=== PATIENT | female | born 1965 | race Caucasian/White ===

== ENCOUNTER → 2019-02-01 | Outpatient (CLI) | payer OTHER ==
[~2019-02-01] MED LIST: FURO20TA3 PO; GABA300C10 PO; GABA600T PO; OXYC5TAB2 PO; POTA10TA5 PO; Simethicone PO; ZOLP10TA PO
== END | disposition home or self-care (01) ==
LOC: RAD 17:02
PROVIDERS: ATTEND Surgery
DX: K76.0 Fatty (change of) liver, not elsewhere classified (principal); Z90.49 Acquired absence of other specified parts of digestive tract
CPT/HCPCS: 76700

== ENCOUNTER 2019-02-23 11:43 | Inpatient (IN) | payer OTHER ==
[~2019-02-23] VITALS: Ht 170.2 cm; Wt 57.1 kg
--- NOTE | 2019-02-23 11:58 | NUR ---
Transfer from [facility] for ABD abscesses x 2. Cholecystectomy 1 mo ago. ABD pain & 40lb weight loss since. 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 Pain 6/10, placed on SPO2 & NIBP monitors. Advised to remain NPO. Call light within reach, SR up x 2. Await ER MD pierce. Report to primary RNBelem.
[2019-02-23] MEDS ORDERED: ONDANSETRON 2MG/ML, 2ML IVPush ONE (12:30)
[2019-02-23] MEDS ORDERED: HYDROmorphone 2 MG/ML, 1ML IVPush PRN (12:30)
[2019-02-23] MEDS ORDERED: SODIUM CHLORIDE FLUSH 10ML SYR IVF ONE (12:30)
[2019-02-23] MEDS ORDERED: ONDANSETRON 2MG/ML, 2ML ONE (12:31)
[2019-02-23] MEDS ORDERED: HYDROmorphone 2 MG/ML, 1ML ONE (12:32)
--- NOTE | 2019-02-23 12:43 | NUR ---
MEDICATED FOR PAIN AND NAUSEA
[2019-02-23 13:03] LABS: BASOPHILS # (AUTO) 0.05 x10^3/uL (0-0.1); BASOPHILS % (AUTO) 1 % (0-1); EOSINOPHILS # (AUTO) 0.12 x10^3/uL (0-0.4); EOSINOPHILS % (AUTO) 2 % (1-7); LYMPHOCYTES # (AUTO) 1.64 x10^3/uL (1-3.4); LYMPHOCYTES % (AUTO) 31 % (22-44); MD NO; MEAN CORPUSCULAR HEMOGLOBIN 32.7 pg (27.0-34.8); MEAN CORPUSCULAR HGB CONC 32.7 g/dL (32.4-35.8); MEAN CORPUSCULAR VOLUME 100.2 fL (80-100); MEAN PLATELET VOLUME 8.5 fL (7.4-10.4); MONOCYTES % (AUTO) 6 % (2-9); NEUTROPHILS # (AUTO) 3.11 x10^3/uL (1.8-6.8); NEUTROPHILS % (AUTO) 60 % (42-75); PLATELET COUNT 325 x10^3/uL (130-400); RED BLOOD COUNT 3.63 x10^6/uL (3.82-5.3); RED CELL DISTRIBUTION WIDTH 16.8 % (9.6-15.2)
[2019-02-23 13:14] LABS: INTERNATIONAL NORMALIZED RATIO 1.02 (0.93-1.1); PROTHROMBIN TIME 10.7 Seconds (9.6-11.5)
[2019-02-23 13:17] LABS: ALANINE AMINOTRANSFERASE 66 U/L (12-78); ALBUMIN 2.8 g/dL (3.4-5.0); ANION GAP 8 mmol/L (5-15); CALCIUM 8.1 mg/dL (8.5-10.1); CHLORIDE 107 mmol/L (98-107); CREATININE 0.81 mg/dL (0.55-1.02)
[2019-02-23 13:20] LABS: ALKALINE PHOSPHATASE 420 U/L (45-117); BILIRUBIN,TOTAL 1.4 mg/dL (0.2-1.0); TOTAL PROTEIN 6.4 g/dL (6.4-8.2)
--- NOTE | 2019-02-23 14:08 | NUR ---
PT AWARE OF PLAN OF CARE. STATES PAIN 12/13 SINCE MEDICATED
--- NOTE | 2019-02-23 14:26 | NUR ---
REPORT TO VIKI HORN. TO BE TRANSPORTED TO FLOOR
[2019-02-23 15:05] VITALS: BP 108/68
[2019-02-23] MEDS ORDERED: LABETALOL 5MG/ML, 20ML IVPush PRN (16:00)
[2019-02-23] MEDS ORDERED: hydrALAzine 20 MG/ML, 1ML IVPush PRN (16:00)
[2019-02-23] MEDS ORDERED: LACTATED RINGERS 1,000 ML IV SCH (16:00)
[2019-02-23] MEDS: GABAPENTIN 300 MG CAPSULE PO SCH ×2 (16:00→20:36)
[2019-02-23] MEDS ORDERED: ACETAMINOPHEN 325 MG TABLET PO PRN (16:00)
[2019-02-23] MEDS ORDERED: PROMETHAZINE 25 MG/ML, 1ML IM PRN (16:00)
[2019-02-23] MEDS ORDERED: GABAPENTIN 300 MG CAPSULE ONE (16:45)
[2019-02-23] MEDS: morphine SULFATE 10 MG/ML, 1ML IVPush PRN ×2 (16:53→22:09)
[2019-02-23] MEDS: MEROPENEM 1 GM in SODIUM CHLORIDE 0.9% 100 ML IV SCH (16:59)
[2019-02-23] MEDS: SODIUM CHLORIDE 0.9% 1,000 ML IV SCH (18:10)
[2019-02-23 18:56] LABS: CLOSTRIDIUM DIFFICILE ANTIGEN POSITIVE; CLOSTRIDIUM DIFFICILE TOXIN NEGATIVE (Negative)
[2019-02-23] MEDS: DIPHENHYDRAMINE 50 MG/ML, 1ML IVPush PRN (20:06)
[2019-02-23] MEDS: OXYcodone IR 5MG TABLET PO PRN (20:37)
[2019-02-23 20:40] VITALS: BP 105/74
[2019-02-23] MEDS ORDERED: GABAPENTIN 300 MG CAPSULE PO SCH (21:00)
[2019-02-23] MEDS: ZOLPIDEM 10MG TABLET PO PRN (22:09)
[2019-02-24] MEDS: MEROPENEM 1 GM in SODIUM CHLORIDE 0.9% 100 ML IV SCH ×3 (00:16→15:57)
[2019-02-24] MEDS: morphine SULFATE 10 MG/ML, 1ML IVPush PRN ×7 (01:29→21:58)
[2019-02-24 01:31] VITALS: BP 107/63
[2019-02-24] MEDS: SODIUM CHLORIDE 0.9% 1,000 ML IV SCH ×3 (02:07→17:58)
[2019-02-24 04:51] LABS: BASOPHILS # (AUTO) 0.04 x10^3/uL (0-0.1); BASOPHILS % (AUTO) 1 % (0-1); EOSINOPHILS # (AUTO) 0.41 x10^3/uL (0-0.4); EOSINOPHILS % (AUTO) 9 % (1-7); LYMPHOCYTES # (AUTO) 1.36 x10^3/uL (1-3.4); LYMPHOCYTES % (AUTO) 29 % (22-44); MD NO; MEAN CORPUSCULAR HEMOGLOBIN 33.1 pg (27.0-34.8); MEAN CORPUSCULAR HGB CONC 32.7 g/dL (32.4-35.8); MEAN CORPUSCULAR VOLUME 101.4 fL (80-100); MEAN PLATELET VOLUME 8.9 fL (7.4-10.4); MONOCYTES # (AUTO) 0.33 x10^3/uL (0.2-0.8); MONOCYTES % (AUTO) 7 % (2-9); NEUTROPHILS # (AUTO) 2.57 x10^3/uL (1.8-6.8); NEUTROPHILS % (AUTO) 55 % (42-75); PLATELET COUNT 290 x10^3/uL (130-400); RED BLOOD COUNT 3.27 x10^6/uL (3.82-5.3); RED CELL DISTRIBUTION WIDTH 16.5 % (9.6-15.2)
[2019-02-24] MEDS: DIPHENHYDRAMINE 50 MG/ML, 1ML IVPush PRN ×2 (04:52→17:58)
[2019-02-24 04:58] LABS: ALANINE AMINOTRANSFERASE 79 U/L (12-78); ALBUMIN 2.6 g/dL (3.4-5.0); ANION GAP 7 mmol/L (5-15); CALCIUM 8.2 mg/dL (8.5-10.1); CHLORIDE 111 mmol/L (98-107); CREATININE 0.79 mg/dL (0.55-1.02)
[2019-02-24 05:01] LABS: ALKALINE PHOSPHATASE 408 U/L (45-117); BILIRUBIN,TOTAL 1.8 mg/dL (0.2-1.0)
[2019-02-24 07:42] VITALS: BP_SYST 105; BP_SYST 107; BP_SYST 88; BP_DIAS 60; BP_DIAS 63; BP_DIAS 72
[2019-02-24] MEDS: GABAPENTIN 300 MG CAPSULE PO SCH ×3 (07:55→21:12)
[2019-02-24] MEDS: OXYcodone IR 5MG TABLET PO PRN ×2 (07:55→21:12)
[2019-02-24] MEDS: VANCOMYCIN 50 MG/ML ORAL SUSP PO SCH ×3 (09:03→19:53)
[2019-02-24 13:05] VITALS: BP 106/70
[2019-02-24] MEDS ORDERED: LORazepam 2 MG/ML, 1ML IVPush ONE (13:30)
[2019-02-24 21:17] VITALS: BP 105/85
[2019-02-24] MEDS: ZOLPIDEM 10MG TABLET PO PRN (22:28)
[2019-02-25] MEDS: MEROPENEM 1 GM in SODIUM CHLORIDE 0.9% 100 ML IV SCH ×4 (00:35→23:48)
[2019-02-25] MEDS: DIPHENHYDRAMINE 50 MG/ML, 1ML IVPush PRN ×4 (00:35→20:23)
[2019-02-25] MEDS: VANCOMYCIN 50 MG/ML ORAL SUSP PO SCH ×4 (02:03→20:30)
[2019-02-25] MEDS: morphine SULFATE 10 MG/ML, 1ML IVPush PRN ×8 (02:03→23:49)
[2019-02-25] MEDS: SODIUM CHLORIDE 0.9% 1,000 ML IV SCH ×3 (02:06→20:46)
[2019-02-25 02:36] VITALS: BP 117/66
[2019-02-25 02:49] VITALS: BP 112/87
[2019-02-25 05:38] LABS: ALANINE AMINOTRANSFERASE 110 U/L (12-78); ALBUMIN 2.4 g/dL (3.4-5.0); ANION GAP 8 mmol/L (5-15); CHLORIDE 112 mmol/L (98-107)
[2019-02-25 05:41] LABS: ALKALINE PHOSPHATASE 485 U/L (45-117); BILIRUBIN,TOTAL 2.6 mg/dL (0.2-1.0); CREATININE 0.64 mg/dL (0.55-1.02); TOTAL PROTEIN 5.6 g/dL (6.4-8.2)
[2019-02-25 06:30] LABS: BASOPHILS # (AUTO) 0.02 x10^3/uL (0-0.1); BASOPHILS % (AUTO) 0 % (0-1); EOSINOPHILS # (AUTO) 0.51 x10^3/uL (0-0.4); EOSINOPHILS % (AUTO) 10 % (1-7); LYMPHOCYTES # (AUTO) 1.52 x10^3/uL (1-3.4); LYMPHOCYTES % (AUTO) 29 % (22-44); MD NO; MEAN CORPUSCULAR HGB CONC 32.4 g/dL (32.4-35.8); MEAN CORPUSCULAR VOLUME 101.7 fL (80-100); MEAN PLATELET VOLUME 9.1 fL (7.4-10.4); MONOCYTES % (AUTO) 4 % (2-9); NEUTROPHILS # (AUTO) 2.99 x10^3/uL (1.8-6.8); NEUTROPHILS % (AUTO) 57 % (42-75); PLATELET COUNT 251 x10^3/uL (130-400); RED BLOOD COUNT 3.37 x10^6/uL (3.82-5.3); RED CELL DISTRIBUTION WIDTH 16.1 % (9.6-15.2)
[2019-02-25] MEDS: GABAPENTIN 300 MG CAPSULE PO SCH ×3 (08:10→22:39)
[2019-02-25 09:35] VITALS: BP 134/87
[2019-02-25] MEDS: ONDANSETRON 2MG/ML, 2ML IVPush PRN (11:16)
[2019-02-25 14:26] VITALS: BP 157/99
[2019-02-25 20:06] VITALS: BP 128/95
[2019-02-25] MEDS: MICONAZOLE 7 VAG. CRM 2%, 45GM VG SCH (22:39)
[2019-02-25] MEDS: ZOLPIDEM 10MG TABLET PO PRN (23:49)
[2019-02-26] MEDS: VANCOMYCIN 50 MG/ML ORAL SUSP PO SCH ×5 (01:42→20:39)
[2019-02-26 02:13] VITALS: BP 121/85
[2019-02-26] MEDS: morphine SULFATE 10 MG/ML, 1ML IVPush PRN ×6 (02:40→22:39)
[2019-02-26] MEDS ORDERED: MIDAZOLAM 1 MG/ML, 2ML ONE (06:55)
[2019-02-26] MEDS ORDERED: FENTANYL PF 100 MCG/2ML ONE (06:55)
[2019-02-26] MEDS ORDERED: PROPOFOL 10 MG/ML, 20ML ONE (06:58)
[2019-02-26] MEDS ORDERED: DEXAMETHASONE 4 MG/ML, 1ML ONE (06:58)
[2019-02-26] MEDS ORDERED: ONDANSETRON 2MG/ML, 2ML ONE (06:58)
[2019-02-26] MEDS ORDERED: SUCCINYLCHOLINE 20 MG/ML, 10ML ONE (07:01)
[2019-02-26] MEDS ORDERED: ROCURONIUM 10 MG/ML,10ML ONE (07:01)
[2019-02-26] MEDS ORDERED: OXYcodone 5 MG/5 ML ORAL.SOL UDC PO PRN (07:30)
[2019-02-26] MEDS ORDERED: ALBUTEROL/IPRATROPIUM 2.5MG/0.5MG, 3 ML NPPB PRN (07:30)
[2019-02-26] MEDS ORDERED: PROMETHAZINE 25 MG/ML, 1ML IV PRN (07:30)
[2019-02-26] MEDS ORDERED: MIDAZOLAM 1 MG/ML, 2ML IV PRN (07:30)
[2019-02-26] MEDS ORDERED: FENTANYL PF 100 MCG/2ML IV PRN (07:30)
[2019-02-26] MEDS ORDERED: HYDROmorphone 2 MG/ML, 1ML IVPush PRN (07:30)
[2019-02-26] MEDS: MEROPENEM 1 GM in SODIUM CHLORIDE 0.9% 100 ML IV SCH ×2 (08:45→16:23)
[2019-02-26] MEDS: GABAPENTIN 300 MG CAPSULE PO SCH ×3 (08:45→22:38)
[2019-02-26] MEDS ORDERED: OXYcodone IR 5MG TABLET PO PRN (09:30)
[2019-02-26] MEDS: DIPHENHYDRAMINE 50 MG/ML, 1ML IVPush PRN ×2 (12:07→18:24)
[2019-02-26 12:58] LABS: CHLORIDE 105 mmol/L (98-107)
[2019-02-26 13:13] LABS: MEAN CORPUSCULAR HEMOGLOBIN 33.3 pg (27.0-34.8); MEAN CORPUSCULAR HGB CONC 32.9 g/dL (32.4-35.8); MEAN CORPUSCULAR VOLUME 101.2 fL (80-100); MEAN PLATELET VOLUME 10.2 fL (7.4-10.4); PLATELET COUNT 263 x10^3/uL (130-400); RED BLOOD COUNT 3.63 x10^6/uL (3.82-5.3); RED CELL DISTRIBUTION WIDTH 15.8 % (9.6-15.2)
[2019-02-26 13:35] LABS: ALANINE AMINOTRANSFERASE 162 U/L (12-78); ALKALINE PHOSPHATASE 679 U/L (45-117); ANION GAP 17 mmol/L (5-15); BILIRUBIN,TOTAL 4.1 mg/dL (0.2-1.0); CALCIUM 8.8 mg/dL (8.5-10.1); CREATININE 0.61 mg/dL (0.55-1.02); MD YES; TOTAL PROTEIN 7.1 g/dL (6.4-8.2)
[2019-02-26 13:37] LABS: BANDS%(MANUAL) 16 % (0-7); LYMPH#(MANUAL) 0.76 x10^3/uL (1-3.4); LYMPHS% (MANUAL) 11 % (22-44); MONOS#(MANUAL) 0.14 x10^3/uL (0.3-2.7); MONOS% (MANUAL) 2 % (2-9); SEGS% (MANUAL) 71 % (42-75)
[2019-02-26 13:38] LABS: <PLATELET ESTIMATE> ADEQUATE; <PLT MORPHOLOGY> NORMAL PLT MORPH
[2019-02-26 14:10] VITALS: BP 126/82
[2019-02-26] MEDS: OXYcodone IR 5MG TABLET PO PRN ×2 (14:53→20:55)
[2019-02-26 16:21] VITALS: BP 127/84
[2019-02-26] MEDS: SODIUM CHLORIDE 0.9% 1,000 ML IV SCH (18:25)
[2019-02-26] MEDS: ONDANSETRON 2MG/ML, 2ML IV PRN (18:38)
[2019-02-26 19:23] VITALS: BP 141/100
[2019-02-26] MEDS: CALCIUM CARBONATE 500 MG TAB.CHEW PO PRN ×2 (20:14→22:41)
[2019-02-26] MEDS: MICONAZOLE 7 VAG. CRM 2%, 45GM VG SCH (22:38)
[2019-02-27] MEDS: ZOLPIDEM 10MG TABLET PO PRN ×2 (00:10→23:21)
[2019-02-27 00:12] VITALS: BP 133/89
[2019-02-27] MEDS: MEROPENEM 1 GM in SODIUM CHLORIDE 0.9% 100 ML IV SCH (00:54)
[2019-02-27] MEDS: SODIUM CHLORIDE 0.9% 1,000 ML IV SCH (02:58)
[2019-02-27] MEDS: ONDANSETRON 2MG/ML, 2ML IVPush PRN ×3 (02:58→15:24)
[2019-02-27] MEDS: DIPHENHYDRAMINE 50 MG/ML, 1ML IVPush PRN (02:59)
[2019-02-27] MEDS: VANCOMYCIN 50 MG/ML ORAL SUSP PO SCH ×4 (02:59→21:46)
[2019-02-27] MEDS: OXYcodone IR 5MG TABLET PO PRN ×4 (02:59→21:45)
[2019-02-27] MEDS: morphine SULFATE 10 MG/ML, 1ML IVPush PRN ×2 (04:16→08:25)
[2019-02-27 05:08] LABS: ALBUMIN 2.4 g/dL (3.4-5.0); ANION GAP 12 mmol/L (5-15); CALCIUM 8.2 mg/dL (8.5-10.1); CHLORIDE 108 mmol/L (98-107)
[2019-02-27 05:11] LABS: ALANINE AMINOTRANSFERASE 120 U/L (12-78); ALKALINE PHOSPHATASE 511 U/L (45-117); CREATININE 0.65 mg/dL (0.55-1.02); TOTAL PROTEIN 5.9 g/dL (6.4-8.2)
[2019-02-27] MEDS ORDERED: POTASSIUM CHLORIDE 10 MEQ in D5%-0.45% NACL 1,000 ML IV SCH (07:30)
[2019-02-27 07:51] VITALS: BP 132/91
[2019-02-27] MEDS: GABAPENTIN 300 MG CAPSULE PO SCH ×3 (08:19→21:46)
[2019-02-27] MEDS: SIMETHICONE 125 MG CHEW TAB PO PRN ×2 (11:45→18:14)
[2019-02-27] MEDS: CALCIUM CARBONATE 500 MG TAB.CHEW PO PRN ×2 (11:45→15:24)
[2019-02-27 13:20] VITALS: BP 128/85
[2019-02-27] MEDS: FUROSEMIDE 20 MG TABLET PO SCH (16:37)
[2019-02-27] MEDS ORDERED: SODIUM CHLORIDE 0.9% 1,000 ML IV SCH (17:00)
[2019-02-27 20:04] VITALS: BP 135/91
[2019-02-27] MEDS: MICONAZOLE 7 VAG. CRM 2%, 45GM VG SCH (21:46)
[2019-02-27] MEDS: ONDANSETRON 2MG/ML, 2ML IV PRN (21:46)
[2019-02-28 02:19] VITALS: BP 126/75
[2019-02-28] MEDS: ONDANSETRON 2MG/ML, 2ML IVPush PRN ×3 (03:02→15:04)
[2019-02-28] MEDS: OXYcodone IR 5MG TABLET PO PRN ×4 (03:02→20:58)
[2019-02-28] MEDS: VANCOMYCIN 50 MG/ML ORAL SUSP PO SCH ×4 (03:02→20:57)
[2019-02-28] MEDS: GABAPENTIN 300 MG CAPSULE PO SCH ×3 (03:03→20:46)
[2019-02-28 05:16] LABS: ALBUMIN 2.4 g/dL (3.4-5.0); ANION GAP 10 mmol/L (5-15); CHLORIDE 107 mmol/L (98-107)
[2019-02-28 05:21] LABS: ALANINE AMINOTRANSFERASE 86 U/L (12-78); ALKALINE PHOSPHATASE 444 U/L (45-117); BILIRUBIN,TOTAL 1.5 mg/dL (0.2-1.0); CREATININE 0.56 mg/dL (0.55-1.02); TOTAL PROTEIN 5.9 g/dL (6.4-8.2)
[2019-02-28 06:52] VITALS: BP 119/71
[2019-02-28] MEDS: FUROSEMIDE 20 MG TABLET PO SCH ×2 (07:54→16:35)
[2019-02-28] MEDS: POTASSIUM CHLORIDE 20 MEQ TAB.ER.PRT PO SCH ×2 (07:55→16:35)
[2019-02-28] MEDS ORDERED: POTASSIUM CHLORIDE 40 MEQ in SODIUM CHLORIDE 0.9% 500 ML IV ONE (08:00)
[2019-02-28 08:10] LABS: MEAN CORPUSCULAR HGB CONC 32.1 g/dL (32.4-35.8); MEAN CORPUSCULAR VOLUME 99.5 fL (80-100); MEAN PLATELET VOLUME 10.2 fL (7.4-10.4); PLATELET COUNT 246 x10^3/uL (130-400); RED BLOOD COUNT 3.07 x10^6/uL (3.82-5.3)
[2019-02-28 08:28] LABS: BASOPHILS # (AUTO) 0.03 x10^3/uL (0-0.1); BASOPHILS % (AUTO) 1 % (0-1); EOSINOPHILS # (AUTO) 0.41 x10^3/uL (0-0.4); EOSINOPHILS % (AUTO) 9 % (1-7); LYMPHOCYTES # (AUTO) 1.44 x10^3/uL (1-3.4); LYMPHOCYTES % (AUTO) 33 % (22-44); MD SCAN; MONOCYTES # (AUTO) 0.37 x10^3/uL (0.2-0.8); MONOCYTES % (AUTO) 8 % (2-9); NEUTROPHILS # (AUTO) 2.11 x10^3/uL (1.8-6.8); NEUTROPHILS % (AUTO) 48 % (42-75)
[2019-02-28 13:40] VITALS: BP 129/86
[2019-02-28] MEDS: SIMETHICONE 125 MG CHEW TAB PO PRN ×2 (15:04→17:25)
[2019-02-28] MEDS: CALCIUM CARBONATE 500 MG TAB.CHEW PO PRN (18:34)
[2019-02-28 20:12] VITALS: BP 141/83
[2019-02-28] MEDS: MICONAZOLE 7 VAG. CRM 2%, 45GM VG SCH (20:56)
[2019-02-28] MEDS: ONDANSETRON 2MG/ML, 2ML IV PRN (21:05)
[2019-02-28] MEDS: ZOLPIDEM 10MG TABLET PO PRN (22:44)
[2019-03-01] MEDS: ONDANSETRON 2MG/ML, 2ML IV PRN ×2 (03:01→09:11)
[2019-03-01] MEDS: OXYcodone IR 5MG TABLET PO PRN ×2 (03:02→09:12)
[2019-03-01] MEDS: VANCOMYCIN 50 MG/ML ORAL SUSP PO SCH ×2 (03:05→09:12)
[2019-03-01 03:17] VITALS: BP 143/82
[2019-03-01 07:04] VITALS: BP 133/91
[2019-03-01] MEDS: FUROSEMIDE 20 MG TABLET PO SCH (08:00)
[2019-03-01 08:43] LABS: BASOPHILS # (AUTO) 0.03 x10^3/uL (0-0.1); BASOPHILS % (AUTO) 1 % (0-1); EOSINOPHILS # (AUTO) 0.19 x10^3/uL (0-0.4); EOSINOPHILS % (AUTO) 3 % (1-7); LYMPHOCYTES # (AUTO) 1.77 x10^3/uL (1-3.4); LYMPHOCYTES % (AUTO) 30 % (22-44); MD NO; MEAN CORPUSCULAR HGB CONC 32.2 g/dL (32.4-35.8); MEAN CORPUSCULAR VOLUME 99.6 fL (80-100); MEAN PLATELET VOLUME 9.8 fL (7.4-10.4); MONOCYTES # (AUTO) 0.66 x10^3/uL (0.2-0.8); MONOCYTES % (AUTO) 11 % (2-9); NEUTROPHILS # (AUTO) 3.24 x10^3/uL (1.8-6.8); NEUTROPHILS % (AUTO) 55 % (42-75); PLATELET COUNT 288 x10^3/uL (130-400); RED BLOOD COUNT 3.71 x10^6/uL (3.82-5.3); RED CELL DISTRIBUTION WIDTH 15.7 % (9.6-15.2)
[2019-03-01 08:48] LABS: ALANINE AMINOTRANSFERASE 82 U/L (12-78); ANION GAP 7 mmol/L (5-15); CALCIUM 8.5 mg/dL (8.5-10.1); CHLORIDE 104 mmol/L (98-107)
[2019-03-01 08:50] LABS: ALKALINE PHOSPHATASE 459 U/L (45-117); BILIRUBIN,TOTAL 1.4 mg/dL (0.2-1.0); CREATININE 0.65 mg/dL (0.55-1.02)
[2019-03-01] MEDS: GABAPENTIN 300 MG CAPSULE PO SCH (09:12)
[2019-03-01] MEDS: POTASSIUM CHLORIDE 20 MEQ TAB.ER.PRT PO SCH (09:12)
[2019-03-01] MEDS: SIMETHICONE 125 MG CHEW TAB PO PRN (09:12)
[2019-03-01] MEDS ORDERED: VANC1VIA3 PO (10:24)
[2019-03-01] MEDS ORDERED: POTA20TA6 PO (10:26)
[2019-03-01] MEDS ORDERED: ONDA4TAB7 PO (10:26)
[2019-03-01] MEDS ORDERED: Simethicone PO (10:40)
[2019-03-02 13:14] LABS: ANA SCREEN NEGATIVE (Negative)
== END 2019-03-01 12:19 | disposition home or self-care (01) | DRG 444 ==
LOC: ED 13:24 → EDIP 13:40 → 4NOR 14:56
PROVIDERS: ADMIT Internal Medicine; ATTEND Internal Medicine
PROC: 0FC98ZZ Extirpation of Matter from Common Bile Duct, Via Natural or Artificial Opening Endoscopic (ICD-10-PCS; 2019-02-26)
PROC: BF101ZZ Fluoroscopy of Bile Ducts using Low Osmolar Contrast (ICD-10-PCS; 2019-02-26)
PROC: 0F798ZZ Dilation of Common Bile Duct, Via Natural or Artificial Opening Endoscopic (ICD-10-PCS; principal; 2019-02-26 07:00)
DX: K80.51 Calculus of bile duct without cholangitis or cholecystitis with obstruction (principal); E43 Unspecified severe protein-calorie malnutrition; E87.2 Acidosis; A04.72 Enterocolitis due to Clostridium difficile, not specified as recurrent; Z68.1 Body mass index [BMI] 19.9 or less, adult; M10.9 Gout, unspecified; Z66 Do not resuscitate; D72.825 Bandemia; K75.81 Nonalcoholic steatohepatitis (NASH); F41.9 Anxiety disorder, unspecified; G47.00 Insomnia, unspecified; G89.29 Other chronic pain; Z90.49 Acquired absence of other specified parts of digestive tract; Z87.891 Personal history of nicotine dependence; Z90.710 Acquired absence of both cervix and uterus; Z88.2 Allergy status to sulfonamides; Z88.0 Allergy status to penicillin; Z88.8 Allergy status to other drugs, medicaments and biological substances
CPT/HCPCS: 36415; 71045; 74328; 78226; 80053; 82150; 82728; 82962; 83516; 83540; 83550; 83605; 85025; 85610; 85730; 86038; 87040; 87324; 87493; 89055; 96374; G0378; J1100; J1170; J2185; J2250; J2405; J2704; J3010; J3370; J3480; A9537; C9898; J0330; J1200; J2060; J2270; J7030; J7040; J7120